=== PATIENT | male | born 1935 | race Caucasian/White ===

== ENCOUNTER 2017-05-29 03:35 | Emergency (ER) | payer MEDICARE, BC ==
[2017-05-29 04:08] VITALS: BP 140/100
--- NOTE | 2017-05-29 04:42 | EDM.PDOC ---
ED HPI GENERAL MEDICAL PROBLEM - General Chief Complaint: Respiratory Problem Stated Complaint: COLD/COUGH Time Seen by Provider: 05/29/17 04:16 Source of Information: Reports: Patient History Limitations: Reports: No Limitations - History of Present Illness INITIAL COMMENTS - FREE TEXT/NARRATIVE: This is an 81-year-old male. He's been having a sinus infection for the last several days. He states he had a sinus infection maybe for 5 weeks ago that required antibiotics to clear it up. He feels like he is having the same symptoms again. No sore throat though he does have nasal congestion. No cough or at least it's a dry cough. No nausea and vomiting no abdominal pain no diarrhea. - Related Data Allergies Allergy/AdvReac Type Severity Reaction Status Date / Time No Known Allergies Allergy Verified 05/29/17 04:09 Home Meds: Home Meds Propranolol [Inderal] 20 mg PO BID 11/01/14 [History] Amoxicillin/Potassium Clav [Augmentin 875-125 Tablet] 1 each PO BID #14 tablet 05/29/17 [Rx] Past Medical History Cardiovascular History: Reports: High Cholesterol, Hypertension - Past Surgical History GI Surgical History: Reports: Hernia, Abdominal, Hernia Repair/Other Male Surgical History: Reports: Varicocele Resection Social & Family History - Tobacco Use Smoking Status *Q: Never Smoker Second Hand Smoke Exposure: No - Caffeine Use Caffeine Use: Reports: None - Recreational Drug Use Recreational Drug Use: No ED ROS GENERAL - Review of Systems Review Of Systems: See Below Constitutional: Denies: Fever, Chills HEENT: Reports: Rhinitis. Denies: Sinus Problem, Throat Pain, Throat Swelling Respiratory: Reports: Cough. Denies: Shortness of Breath, Wheezing Cardiovascular: Reports: No Symptoms Endocrine: Reports: No Symptoms GI/Abdominal: Reports: No Symptoms : Reports: No Symptoms Musculoskeletal: Reports: Other (Arthritis) Skin: Reports: No Symptoms Neurological: Reports: No Symptoms Psychiatric: Reports: No Symptoms Hematologic/Lymphatic: Reports: No Symptoms ED EXAM, GENERAL - Physical Exam Exam: See Below Exam Limited By: No Limitations General Appearance: Alert, WD/WN, No Apparent Distress Eye Exam: Bilateral Eye: Normal Inspection Ears: Normal External Exam, Normal Canal, Normal TMs, Other (Q-tip use with abrasion both ears) Nose: Nasal Drainage Throat/Mouth: Normal Inspection, Normal Lips, Normal Oropharynx, Normal Voice, No Airway Compromise Head: Normocephalic Neck: Supple Respiratory/Chest: No Respiratory Distress, Lungs Clear, Normal Breath Sounds Cardiovascular: Regular Rate, Rhythm, No Murmur Back Exam: Full Range of Motion Extremities: Normal Inspection, Normal Range of Motion, No Pedal Edema Neurological: Alert, Oriented Psychiatric: Normal Affect, Normal Mood Skin Exam: Warm, Dry Course - Vital Signs Last Recorded V/S: Last Vital Signs Temp 98.9 F 05/29/17 04:04 Pulse 74 05/29/17 04:04 Resp 18 05/29/17 04:04 BP 140/100 H 05/29/17 04:04 Pulse Ox 97 05/29/17 04:04 - Orders/Labs/Meds Orders: Active Orders 24 hr Category Date Time Status CULTURE STREP A CONFIRMATION [RM] Stat Lab 05/29/17 04:24 Results Rapid Strep w/culture conf [STREP SCRN A RAPID W CULT Lab 05/29/17 04:24 Results CONF] [] Stat - Re-Assessments/Exams Free Text/Narrative Re-Assessment/Exam: 05/29/17 05:55 I spoke to the patient regarding the negative strep screen as well as the negative influenza test Departure - Departure Time of Disposition: 05:55 Disposition: Home, Self-Care 01 Condition: Good Clinical Impression: Acute sinusitis - Discharge Information Prescriptions: Amoxicillin/Potassium Clav [Augmentin 875-125 Tablet] 1 each PO BID #14 tablet Referrals: Che Ahn PA-C [Primary Care Provider] - Forms: ED Department Discharge Additional Instructions: Drink lots of fluids and avoid sugar and caffeine, take the antibiotics faithfully until they're finished, use [id number] medication to help with the congestion and to help with the cough, follow-up with your family doctor later this week for recheck and return to the ER if needed - My Orders Last 24 Hours: My Active Orders 05/29/17 04:24 CULTURE STREP A CONFIRMATION [RM] Stat Rapid Strep w/culture conf [STREP SCRN A RAPID W CULT CONF] [] Stat - Assessment/Plan Last 24 Hours: My Active Orders 05/29/17 04:24 CULTURE STREP A CONFIRMATION [RM] Stat Rapid Strep w/culture conf [STREP SCRN A RAPID W CULT CONF] [] Stat
== END 2017-05-29 06:11 | disposition home or self-care (01) ==
LOC: JD.ED 03:35
DX: J01.90 Acute sinusitis, unspecified (principal); E78.00 Pure hypercholesterolemia, unspecified; I10 Essential (primary) hypertension
CPT/HCPCS: 87081; 87430; 87804; 99283

== ENCOUNTER 2019-10-14 08:20 | Emergency (ER) | payer MEDICARE, BC ==
[2019-10-14 08:35] VITALS: BP 159/89; PULSE 78
--- NOTE | 2019-10-14 08:44 | EDM.PDOC ---
ED HPI GENERAL MEDICAL PROBLEM - General Chief Complaint: ENT Problem Stated Complaint: SOMTHING IN RIGHT EYE Time Seen by Provider: 10/14/19 08:30 Source of Information: Reports: Patient History Limitations: Reports: No Limitations - History of Present Illness INITIAL COMMENTS - FREE TEXT/NARRATIVE: 84-year-old male presents to the ED due to redness and irritation feeling in his right eye particularly up underneath the right eyelid. He has no known foreign body entering his eye. He states he is been inside for the last few days. He is using refresh drops for dry eyes and fears that when he uses them the eye becomes more irritated and sore. He is suspect that he may have developed an allergy to them. However the left eye is showing no signs of erythema. He denies any discharge. Denies any blurred vision. No previous eye surgery. No history of glaucoma. 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) Right Eye Pain Score (Numeric/FACES): 3 - Related Data Allergies Allergy/AdvReac Type Severity Reaction Status Date / Time No Known Allergies Allergy Verified 10/14/19 08:35 Home Meds: Home Meds Propranolol [Inderal] 20 mg PO BID 11/01/14 [History] Amoxicillin/Potassium Clav [Augmentin 875-125 Tablet] 1 each PO BID #14 tablet 05/29/17 [Rx] Past Medical History Cardiovascular History: Reports: High Cholesterol, Hypertension - Past Surgical History GI Surgical History: Reports: Hernia, Abdominal, Hernia Repair/Other Male Surgical History: Reports: Varicocele Resection Social & Family History - Caffeine Use Caffeine Use: Reports: None - Living Situation & Occupation Living situation: Reports: Occupation: Retired ED ROS GENERAL - Review of Systems Review Of Systems: See Below Constitutional: Denies: Fever, Chills, Malaise, Weakness, Fatigue, Decreased Appetite, Weight Loss HEENT: Reports: Eye Pain (Right eye discomfort and redness for about 4 days. No discharge), Hearing Loss Respiratory: Reports: No Symptoms. Denies: Shortness of Breath, Wheezing, Pleuritic Chest Pain Cardiovascular: Reports: Blood Pressure Problem, Dyspnea on Exertion (On occasion.). Denies: Chest Pain, Claudication, Edema, Lightheadedness, Orthopnea , Palpitations Endocrine: Reports: Fatigue GI/Abdominal: Reports: No Symptoms : Reports: Frequency, Other (Nocturia x2 or 3.) Musculoskeletal: Reports: Neck Pain, Back Pain, Joint Pain (Knees and hips at times. Occasionally shoulders as well.) Skin: Reports: No Symptoms Neurological: Reports: No Symptoms Psychiatric: Reports: No Symptoms Hematologic/Lymphatic: Reports: No Symptoms Immunologic: Reports: No Symptoms ED EXAM GENERAL W FULL EYE - Physical Exam Exam: See Below Exam Limited By: No Limitations General Appearance: Alert, WD/WN, No Apparent Distress, Other (Vital signs reveal a temperature of 36.2 pulse is 78 and sinus respiratory 16 BP 159/89 pulse ox 98% on room air) Eye Exam: Right Eye: Conjunctival Injection (Moderate both medially laterally and both blepharal margins.), Corneal Abrasion (No corneal abrasion identified. He is clear), Normal Fundi, PERRL, Other (No exudate right eye) Eyelids: Right: Erythema (On inversion), Lid Everted for Exam (Diffuse erythema of the blepharal margin but no foreign bodies identified) Conjunctiva & Sclera: Right: Injected (Both medially and laterally worse inferiorly.) Cornea Exam: Right: Normal Appearance (No foreign bodies identified.) Extraocular Movements: Bilateral: Intact Pupils: Normal Accommodation Pupillary Size: Bilateral: 6 mm Pupillary Reaction: Bilateral: Brisk Anterior Chamber: Right: Normal Appearance Posterior Chamber: Right: Normal Funduscopic Course - Vital Signs Last Recorded V/S: Last Vital Signs Temp 36.2 C 10/14/19 08:32 Pulse 78 10/14/19 08:32 Resp 16 10/14/19 08:32 BP 159/89 H 10/14/19 08:32 Pulse Ox 98 10/14/19 08:32 - Orders/Labs/Meds Orders: Active Orders 24 hr Category Date Time Status prednisoLONE acetate [Pred Forte 1% Ophth Susp] Med 10/14/19 09:00 Active 2.5 ml EYERT TID Medication Orders Prednisolone Acetate (Pred Forte 1% Ophth Susp) 2.5 ml EYERT TID DELIA Meds: Medications Generic Name Dose Route Start Last Admin Trade Name Javier PRN Reason Stop Dose Admin Prednisolone Acetate 2.5 ml 10/14/19 09:00 Pred Forte 1% Ophth Susp EYERT TID DELIA - Radiology Interpretation Free Text/Narrative:: 84-year-old male presents to the ED with a irritated right eye which is been erythematous for the last 3 to 4 days. Denies any discharge from the eye or crusting. No change in visual acuity. Just feels like there is something underneath his right upper eyelid. Eye foreign body sensation although he has no recollection of getting anything in his eye. He is using refresh ophthalmic drops for dry eyes and he states it seems to get worse every time he uses the drops. However the left eye is not affected. On examination he has diffuse erythema of the conjunctiva with injection both medially and laterally and worse inferiorly. Both blepharal margins are erythematous and inflamed. Appears to be an allergic reaction likely to the refresh eyedrops preservatives. Is is to be discontinued. Given Pred forte ophthalmic drops 1 drop 3 times daily for 2 days to clear up inflammation. Follow-up with checkroom chief if not better in 48 hours Departure - Departure Time of Disposition: 08:42 Disposition: Home, Self-Care 01 Condition: Fair Clinical Impression: Allergic conjunctivitis Qualifiers: Laterality: right Qualified Code(s): H10.11 - Acute atopic conjunctivitis, right eye - Discharge Information *PRESCRIPTION DRUG MONITORING PROGRAM REVIEWED*: Not Applicable *COPY OF PRESCRIPTION DRUG MONITORING REPORT IN PATIENT WILY: Not Applicable Instructions: Allergic Conjunctivitis, Adult, [id number] Referrals: Che Ahn PA-C [Primary Care Provider] - Forms: ED Department Discharge Additional Instructions: Evaluation in the emergency room this morning in regards to redness of the right eye conjunctiva for the last 3 or 4 days. No associated discharge. On inspection of the eye it is erythematous and irritated throughout both sides of the conjunctiva and both upper and lower lids. No foreign bodies were identified corneas clear. I suspect the allergic reaction is from the refresh eyedrops that you were using to use for artificial tears or dry eyes. Suggest discontinuing this medication it is. You are developing an allergy likely to the preservatives in the medication. Use Pred forte ophthalmic drops to the right eye 3 times today and 3 times tomorrow if needed to take away the redness and inflammation of the right eye. If not markedly improved in 48 hours you should be reviewed by checkroom chief. Sepsis Event Note (ED) - Evaluation Sepsis Screening Result: No Definite Risk - Focused Exam Vital Signs: Vital Signs Temp Pulse Resp BP Pulse Ox 10/14/19 08:32 36.2 C 78 16 159/89 H 98 - My Orders Last 24 Hours: My Active Orders 10/14/19 09:00 prednisoLONE acetate [Pred Forte 1% Ophth Susp] 2.5 ml EYERT TID - Assessment/Plan Last 24 Hours: My Active Orders 10/14/19 09:00 prednisoLONE acetate [Pred Forte 1% Ophth Susp] 2.5 ml EYERT TID
[2019-10-14] MEDS ORDERED: prednisoLONE Acetate 1% Ophth Susp 5 ML Bottle EYERT SCH (09:00)
== END 2019-10-14 09:07 | disposition home or self-care (01) ==
LOC: JD.ED 08:20
DX: H10.11 Acute atopic conjunctivitis, right eye (principal); I10 Essential (primary) hypertension
CPT/HCPCS: 99282; A9270

== ENCOUNTER 2020-12-07 12:59 | Emergency (ER) | payer MEDICARE, BC ==
--- NOTE | 2020-12-07 13:10 | EDM.PDOC ---
ED HPI GENERAL MEDICAL PROBLEM - General Chief Complaint: General Stated Complaint: LT SHOULDER AND NECK PAIN Time Seen by Provider: 12/07/20 13:09 - History of Present Illness INITIAL COMMENTS - FREE TEXT/NARRATIVE: 85-year-old male presents the emergency room with shoulder and neck pain. Patient developed left-sided shoulder and neck pain after doing some work in the yard. Patient also has atrial fibrillation and is on Eliquis. He does not have any chest pain per se but the left arm shoulder and neck pain is concerning. Patient denies any recent fevers or chills does not have a cough. He has not had any substernal chest pain or pressure and otherwise feels pretty good. He denies any significant injury but has been lifting yard equipment and some fence posts. Left Shoulder Pain Score (Numeric/FACES): 2 - Related Data Allergies Allergy/AdvReac Type Severity Reaction Status Date / Time No Known Allergies Allergy Verified 12/07/20 13:20 Home Meds: Home Meds Propranolol [Inderal] 20 mg PO BID PRN MDD 40 11/01/14 [History] Furosemide [Lasix] 20 mg PO DAILY 12/07/20 [History] Metoprolol Succinate 50 mg PO DAILY 12/07/20 [History] Olmesartan Medoxomil 5 mg PO DAILY 12/07/20 [History] Rivaroxaban [Xarelto] 20 mg PO DAILY 12/07/20 [History] Past Medical History - Past Health History Medical/Surgical History: Denies Medical/Surgical History Cardiovascular History: Reports: High Cholesterol, Hypertension - Past Surgical History GI Surgical History: Reports: Hernia, Abdominal, Hernia Repair/Other Male Surgical History: Reports: Varicocele Resection Social & Family History - Family History Family Medical History: No Pertinent Family History - Caffeine Use Caffeine Use: Reports: None - Living Situation & Occupation Living situation: Reports: Occupation: Retired ED ROS GENERAL - Review of Systems Review Of Systems: See Below Constitutional: Reports: No Symptoms. Denies: Fever, Chills HEENT: Reports: No Symptoms Respiratory: Reports: No Symptoms Cardiovascular: Reports: Other (He does have some shoulder neck and arm pain that can be an anginal equivalent). Denies: Chest Pain Endocrine: Reports: No Symptoms GI/Abdominal: Reports: No Symptoms : Reports: No Symptoms Musculoskeletal: Reports: Neck Pain, Shoulder Pain, Arm Pain (Left-sided) Neurological: Reports: No Symptoms ED EXAM, GENERAL - Physical Exam Exam: See Below Exam Limited By: No Limitations General Appearance: Alert, No Apparent Distress Head: Atraumatic, Normocephalic Neck: Tender Lateral (The muscles that come down on the left side of the neck into the shoulder all exquisitely tender with palpation no redness or warmth associated with this) Respiratory/Chest: No Respiratory Distress, Lungs Clear, Normal Breath Sounds Cardiovascular: No Edema, No Murmur, Irregularly Irregular GI/Abdominal: Normal Bowel Sounds, Soft, Non-Tender #1 Interpretation EKG Date: 12/07/20 Rhythm: A-Fib P-Wave: Absent QRS: LBBB ST-T: Other (Normal disconcordant changes) QT: Normal Comparison: NA - No Prior EKG EKG Interpretation Comments: Abnormal EKG Course - Vital Signs Last Recorded V/S: Last Vital Signs Temp 36.3 C 12/07/20 13:16 Pulse 86 12/07/20 13:16 Resp 18 12/07/20 13:16 BP 157/112 H 12/07/20 13:16 Pulse Ox 98 12/07/20 13:16 - Orders/Labs/Meds Labs: Laboratory Tests 12/07/20 12/07/20 Range/Units 14:05 14:05 WBC 6.68 (4.23-9.07) K/mm3 RBC 4.49 L (4.63-6.08) M/mm3 Hgb 13.5 L (13.7-17.5) gm/dl Hct 41.3 (40.1-51.0) % MCV 92.0 (79.0-92.2) fl MCH 30.1 (25.7-32.2) pg MCHC 32.7 (32.2-35.5) g/dl RDW Std Deviation 45.8 H (35.1-43.9) fL Plt Count 179 (163-337) K/mm3 MPV 9.5 (9.4-12.3) fl Neut % (Auto) 72.2 H (34.0-67.9) % Lymph % (Auto) 16.3 L (21.8-53.1) % Bladen % (Auto) 7.5 (5.3-12.2) % Eos % (Auto) 2.8 (0.8-7.0) Baso % (Auto) 0.6 (0.1-1.2) % Neut # (Auto) 4.82 (1.78-5.38) K/mm3 Lymph # (Auto) 1.09 L (1.32-3.57) K/mm3 Bladen # (Auto) 0.50 (0.30-0.82) K/mm3 Eos # (Auto) 0.19 (0.04-0.54) K/mm3 Baso # (Auto) 0.04 (0.01-0.08) K/mm3 Sodium 142 (136-145) mEq/L Potassium 4.4 (3.5-5.1) mEq/L Chloride 108 H (98-107) mEq/L Carbon Dioxide 25 (21-32) mEq/L Anion Gap 13.4 (5-15) BUN 19 H (7-18) mg/dL Creatinine 0.9 (0.7-1.3) mg/dL Est Cr Clr Drug Dosing 61.59 mL/min Estimated GFR (MDRD) > 60 (>60) mL/min BUN/Creatinine Ratio 21.1 H (14-18) Glucose 106 H (70-99) mg/dL Calcium 8.3 L (8.5-10.1) mg/dL Total Bilirubin 0.6 (0.2-1.0) mg/dL AST 11 L (15-37) U/L ALT 22 (16-63) U/L Alkaline Phosphatase 86 (46-116) U/L Troponin I < 0.017 (0.00-0.056) ng/mL Total Protein 6.6 (6.4-8.2) g/dl Albumin 3.4 (3.4-5.0) g/dl Globulin 3.2 gm/dL Albumin/Globulin Ratio 1.1 (1-2) Meds: Medications Discontinued Medications Generic Name Dose Route Start Last Admin Trade Name Freq PRN Reason Stop Dose Admin Acetaminophen 650 mg 12/07/20 13:44 12/07/20 13:55 Acetaminophen 325 Mg Tab PO 12/07/20 13:45 650 mg NOW ONE Administration - Re-Assessments/Exams Free Text/Narrative Re-Assessment/Exam: 12/07/20 15:20 Patient feels much better after taking 650 mg of Tylenol. I recommended he take this 4 times a day for his aches and pains and now he is in agreement to do this. His EKG shows left bundle branch block and it is in atrial fib normal rate troponin normal chest x-ray no acute changes we will discharge home 12/07/20 15:22 Departure - Departure Time of Disposition: 15:25 Disposition: Home, Self-Care 01 Clinical Impression: Left shoulder pain, Neck pain on left side - Discharge Information Referrals: Che Ahn PA-C [Primary Care Provider] - Forms: ED Department Discharge Additional Instructions: Return to the emergency room with any questions problems or worsening symptoms. Use Tylenol 650 mg 4 times a day as needed for pain. Sepsis Event Note (ED) - Focused Exam Vital Signs: Vital Signs Temp Pulse Resp BP Pulse Ox 12/07/20 13:16 36.3 C 86 18 157/112 H 98
[2020-12-07 13:20] VITALS: BP 157/112; PULSE 86
[2020-12-07] MEDS ORDERED: Acetaminophen 325 MG Tab PO ONE (13:44)
--- NOTE | 2020-12-07 15:02 | CR ---
Chest: Portable view of the chest was obtained. Comparison: Prior chest x-ray of 11/09/17. Aorta is either tortuous or aneurysmal but is similar to prior study. Heart size appears within normal limits for portable technique. Lungs are clear with no acute parenchymal change. Osseous structures show nothing abnormal for the patient's age. Impression: 1. Findings as noted above. 2. Nothing acute is appreciated on portable chest x-ray. Diagnostic code #2
== END 2020-12-07 16:15 | disposition home or self-care (01) ==
LOC: JD.ED 12:59
DX: M25.512 Pain in left shoulder (principal); M54.2 Cervicalgia; I44.7 Left bundle-branch block, unspecified; I10 Essential (primary) hypertension; Z79.01 Long term (current) use of anticoagulants; Z79.899 Other long term (current) drug therapy
CPT/HCPCS: 36415; 71045; 80053; 84484; 85025; 93005; 99284; A9270; 93010; 99283

== ENCOUNTER 2021-05-25 08:07 | Emergency (ER) | payer MEDICARE, BC ==
[2021-05-25 08:21] VITALS: PULSE 81
[2021-05-25] MEDS ORDERED: Oxymetazoline 0.05% Nasal Spray 30 ML Bottle NAS ONE (08:52)
[2021-05-25 10:58] VITALS: BP 137/99
== END 2021-05-25 10:59 | disposition home or self-care (01) ==
LOC: JD.ED 08:07
DX: R04.0 Epistaxis (principal); I10 Essential (primary) hypertension; I48.91 Unspecified atrial fibrillation; E78.00 Pure hypercholesterolemia, unspecified; Z79.01 Long term (current) use of anticoagulants
CPT/HCPCS: 36415; 80053; 83735; 85025; 85610; 85730; 99283; A9270

== ENCOUNTER 2021-05-25 13:20 | Emergency (ER) | payer MEDICARE, BC ==
[2021-05-25 15:50] VITALS: BP 134/84; PULSE 78
== END 2021-05-25 15:49 | disposition home or self-care (01) ==
LOC: JD.ED 13:20
DX: R04.0 Epistaxis (principal); I48.91 Unspecified atrial fibrillation; E78.00 Pure hypercholesterolemia, unspecified; I10 Essential (primary) hypertension; Z79.01 Long term (current) use of anticoagulants
CPT/HCPCS: 30901; 99283; C9046

== ENCOUNTER 2021-06-05 22:55 | Emergency (ER) | payer MEDICARE, BC ==
[2021-06-05 23:17] VITALS: BP 159/102; PULSE 85
== END 2021-06-06 00:48 | disposition home or self-care (01) ==
LOC: JD.ED 22:55
DX: R04.0 Epistaxis (principal); I48.91 Unspecified atrial fibrillation; E78.00 Pure hypercholesterolemia, unspecified; I10 Essential (primary) hypertension; Z79.01 Long term (current) use of anticoagulants; Z79.899 Other long term (current) drug therapy
CPT/HCPCS: 30901; 99283; C9046

== ENCOUNTER 2021-06-06 01:51 | Emergency (ER) | payer MEDICARE, BC ==
[2021-06-06 02:05] VITALS: BP 160/122; PULSE 89
== END 2021-06-06 04:30 | disposition home or self-care (01) ==
LOC: JD.ED 01:51
DX: R04.0 Epistaxis (principal); I48.91 Unspecified atrial fibrillation; E78.00 Pure hypercholesterolemia, unspecified; I10 Essential (primary) hypertension; Z79.01 Long term (current) use of anticoagulants
CPT/HCPCS: 30903; 99283; C9046

== ENCOUNTER 2022-08-10 11:39 | Emergency (ER) | payer MEDICARE, BC ==
[2022-08-10 11:54] VITALS: BP 183/119; PULSE 68
== END 2022-08-10 12:31 | disposition home or self-care (01) ==
LOC: JD.ED 11:39
DX: S60.453A Superficial foreign body of left middle finger, initial encounter (principal); I48.91 Unspecified atrial fibrillation; I10 Essential (primary) hypertension; Z79.02 Long term (current) use of antithrombotics/antiplatelets; Z79.899 Other long term (current) drug therapy; W45.8XXA Other foreign body or object entering through skin, initial encounter
CPT/HCPCS: 99282; 99283